=== PATIENT | female | born 1960 | race Caucasian/White ===

== ENCOUNTER 2021-01-25 12:03 | Outpatient (CLI) | payer BC | END 2021-01-25 12:04 | disposition home or self-care (01) | LOC: BURRAD 12:03 | PROVIDERS: ATTEND Family Medicine | DX: M54.12 Radiculopathy, cervical region (principal); M48.02 Spinal stenosis, cervical region | CPT/HCPCS: 72050 ==

== ENCOUNTER 2023-02-20 10:05 | Outpatient (CLI) | payer BC | END 2023-02-20 10:06 | disposition home or self-care (01) | LOC: BURRAD 10:05 | PROVIDERS: ATTEND Family Medicine | DX: R06.00 Dyspnea, unspecified (principal) | CPT/HCPCS: 71046 ==

== ENCOUNTER 2025-03-29 16:32 | Outpatient (CLI) | payer BC | END 2025-03-29 16:33 | disposition home or self-care (01) | LOC: BURRAD 16:32 | PROVIDERS: ATTEND Physician Assistant | DX: S99.922D Unspecified injury of left foot, subsequent encounter (principal); M79.672 Pain in left foot ==